=== PATIENT | female | born 1980 | race Caucasian/White ===

== ENCOUNTER 2019-06-17 10:36 | Outpatient (CLI) | payer MEDICAID ==
--- NOTE | 2019-06-18 15:37 | XRAY Report ---
Reason: LOW BACK PAIN CHRONIC, HIP PAIN LT Procedure Date: 06/17/2019 Accession Number: [id number] / [id number] Procedure: XR - Hip w/Pelvis 2-3V LT CPT Code: FULL RESULT: EXAM: LEFT HIP RADIOGRAPHY EXAM DATE: 06/17/2019 11:18 AM. CLINICAL HISTORY: LOW BACK PAIN CHRONIC, HIP PAIN LT. COMPARISON: None. TECHNIQUE: 2 views. FINDINGS: Bones: Normal. No fractures or bone lesion. Joints: Normal. No dislocation. The hip joint space is preserved. Soft Tissues: Normal. No soft tissue swelling. IMPRESSION: 1. No osseous abnormalities. RADIA
--- NOTE | 2019-06-18 16:00 | XRAY Report ---
Reason: LOW BACK PAIN CHRONIC, HIP PAIN LT Procedure Date: 06/17/2019 Accession Number: [id number] / [id number] Procedure: XR - Lumbar Spine Complete CPT Code: FULL RESULT: EXAM: LUMBOSACRAL SPINE RADIOGRAPHY EXAM DATE: 06/17/2019 11:16 AM. CLINICAL HISTORY: Low back pain chronic; hip pain left. COMPARISONS: None. TECHNIQUE: 4 views. FINDINGS: Alignment: Normal. No spondylolisthesis or scoliosis. Bones: Five ajo-iiu-yhrrusr lumbar vertebral bodies are present. No acute fracture or bony lesion. Minimal degenerative spurring. Disks: Mild disk space narrowing at L5-S1. Degenerative changes of the lower thoracic spine. Facets: Mild lower lumbar facet arthropathy greatest at L5-S1. Sacroiliac Joints: Unremarkable. Soft Tissues: Normal. The visualized bowel gas pattern is normal. IMPRESSION: 1. Mild L5-S1 intervertebral disk space narrowing. 2. Lumbar facet arthropathy. RADIA
== END 2019-06-17 10:37 | disposition home or self-care (01) ==
LOC: DI 10:36
PROVIDERS: ATTEND Family Medicine
DX: M25.552 Pain in left hip (principal); M51.37 Other intervertebral disc degeneration, lumbosacral region; M47.816 Spondylosis without myelopathy or radiculopathy, lumbar region; M47.817 Spondylosis without myelopathy or radiculopathy, lumbosacral region; M51.34 Other intervertebral disc degeneration, thoracic region
CPT/HCPCS: 72110

== ENCOUNTER 2019-08-19 18:10 | Emergency (ER) | payer BC, MEDICAID ==
--- NOTE | 2019-08-19 19:22 | ED Physician Documentation ---
PD HPI HEENT - Stated complaint Stated Complaint: L EAR PX - Chief complaint Chief Complaint: Heent - History obtained from History obtained from: Patient - History of Present Illness Timing - details: Constant (4 months of left ear pain and decreased hearing, no URI symptoms.) Review of Systems Constitutional: denies: Fever, Chills Ears: reports: Loss of hearing, Ear pain. denies: Drainage/discharge Nose: denies: Rhinorrhea / runny nose PD PAST MEDICAL HISTORY - Past Medical History Past Medical History: Yes Psych: Anxiety - Past Surgical History Past Surgical History: No - Present Medications Home Medications: Ambulatory Orders Medication Instructions Recorded Confirmed Ibuprofen [Motrin] 400 mg PO Q6H PRN #30 tablet 01/17/14 clonazePAM [Klonopin] 0.5 mg PO BID 01/17/14 01/17/14 - Allergies Allergies/Adverse Reactions: Allergies Allergy/AdvReac Type Severity Reaction Status Date / Time acetaminophen [From Vicodin] Allergy Mild itch Verified 08/19/19 18:18 hydrocodone bitartrate * Allergy Mild itch Verified 08/19/19 18:18 [From Vicodin] - Social History Does the pt smoke?: Yes Smoking Status: Current every day smoker Does the pt drink ETOH?: Yes Does the pt have substance abuse?: No - Immunizations Immunizations are current?: Yes - POLST Patient has POLST: No PD ED PE NORMAL - Vitals Vital signs reviewed: Yes - General General: Alert and oriented X 3, No acute distress - HEENT HEENT: Other (L cerumen impaction, R is nl) - Neuro Neuro: Alert and oriented X 3, Normal speech Results - Vitals Vitals: Vital Signs - 24 hr 08/19/19 18:18 Temperature 37.1 C Heart Rate 85 Respiratory 16 Rate Blood Pressure 118/62 O2 Saturation 96 Oxygen O2 Source Room air Procedures - General procedure General procedure: The left ear was cleared of cerumen using syringe irrigation after which she was symptom-free. Departure - Departure Disposition: 01 Home, Self Care Clinical Impression: Impacted cerumen of left ear Condition: Good
[2019-08-19 19:33] VITALS: BP 120/60
== END 2019-08-19 19:31 | disposition home or self-care (01) ==
LOC: ED 18:10
DX: H61.22 Impacted cerumen, left ear (principal); F17.200 Nicotine dependence, unspecified, uncomplicated
CPT/HCPCS: 69209; 99281; 99282

== ENCOUNTER 2020-01-18 07:13 | Emergency (ER) | payer MEDICAID ==
[2020-01-18] MEDS ORDERED: KETOROLAC 60 MG/2 ML VIAL IM STA (07:34)
--- NOTE | 2020-01-18 07:34 | ED Physician Documentation ---
PD HPI BACK PAIN - Stated complaint Stated Complaint: LOWER BACK PAIN - History obtained from History obtained from: Patient - History of Present Illness Timing - onset: Yesterday Timing - details: Abrupt onset Location: Mid, Lower Quality: Pain, Sharp Associated symptoms: No: Fever, Numbness, Incontinent of urine, Unable to urinate Improves with: Nothing Worsened by: Movement Contributing factors: Lifting Recently seen: Not recently seen - Additional information Additional information: This is a 39-year-old woman who is already in physical therapy for lower back when she lifted her TV stand yesterday with everything still on it and is now having a worsening of her lower back pain more on the right than the left. She took an Aleve tablet last night but is taken nothing this morning. She is complaining of pain "all over her legs" with sparking and shooting pains randomly in different spots in both lower extremities. She denies any urinary symptoms of dysuria or incontinence. Review of Systems Constitutional: denies: Fever : denies: Dysuria, Incontinent, Hematuria Musculoskeletal: reports: Back pain Neurologic: denies: Generalized weakness, Focal weakness PD PAST MEDICAL HISTORY - Past Medical History Psych: Anxiety - Past Surgical History Past Surgical History: No - Present Medications Home Medications: Ambulatory Orders Medication Instructions Recorded Confirmed Ibuprofen [Motrin] 400 mg PO Q6H PRN #30 tablet 01/17/14 Alprazolam [Xanax] 0.25 mg PO 01/18/20 Dextroamphetamine/Amphetamine 10 mg PO 01/18/20 [Adderall 10 mg Tablet] Lidocaine Patch 5% [Lidoderm Patch] 1 patch TOP DAILY PRN #10 patch 01/18/20 methocarbamoL [Robaxin] 500 mg PO Q6H #30 tablet 01/18/20 - Allergies Allergies/Adverse Reactions: Allergies Allergy/AdvReac Type Severity Reaction Status Date / Time acetaminophen [From Vicodin] Allergy Mild itch Verified 01/18/20 07:26 hydrocodone bitartrate * AdvReac Mild itch Verified 01/18/20 07:26 [From Vicodin] - Social History Does the pt smoke?: Yes Smoking Status: Current every day smoker Does the pt drink ETOH?: Yes Does the pt have substance abuse?: No - Immunizations Immunizations are current?: Yes - POLST Patient has POLST: No PD ED PE NORMAL - Vitals Vital signs reviewed: Yes - General General: Alert and oriented X 3, No acute distress, Well developed/nourished, Other (When asked to sit on the bed she actually crawled onto the bed and then turned around to sit because of the pain.) - Back Back: No CVA TTP, Other (No bruising, swelling or rash. 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 Order to put a lidocaine patch on her. I have encouraged her to use her anti-inflammatory medication consistently. I have also prescribed Robaxin since she does not get much relief with Flexeril in the past. Continue with physical therapy. Departure - Departure Disposition: Home, Self Care Clinical Impression: Back pain Qualifiers: Back pain location: low back pain Chronicity: unspecified Back pain laterality: midline Sciatica presence: unspecified whether sciatica present Qualified Code(s): M54.5 - Low back pain Condition: Good Instructions: ED Sprain Strain Lumbar Follow-Up: Oswaldo Diaz DO [Primary Care Provider] - Prescriptions: Lidocaine Patch 5% [Lidoderm Patch] 1 patch TOP DAILY PRN #10 patch PRN Reason: pain methocarbamoL [Robaxin] 500 mg PO Q6H #30 tablet Comments: Continue to take your Aleve twice a day. Use the lidocaine patches on the lower back. Avoid icing if you are using the lidocaine because you can end up with frostbite or burn to the skin. May use the Robaxin muscle relaxer up to 4 times a day if needed. Continue with your physical therapy stretches at home. Follow-up with your primary care provider if you have continued pain.
[2020-01-18] MEDS ORDERED: LIDOCAINE PATCH 5% TOP STA (07:40)
[2020-01-18 08:06] VITALS: BP 113/54
== END 2020-01-18 08:16 | disposition home or self-care (01) ==
LOC: ED 07:13
DX: M54.5 Low back pain (principal); F17.200 Nicotine dependence, unspecified, uncomplicated
CPT/HCPCS: 96372; 99283; 99284; A9270

== ENCOUNTER 2020-07-29 10:42 | Outpatient (CLI) | payer OTHER, MEDICAID ==
--- NOTE | 2020-07-29 14:32 | XRAY Report ---
PROCEDURE: Bone Length Study INDICATIONS: LEG LENGTH DISCREPANCY TECHNIQUE: A single frontal standing view of both lower extremities acquired, with measuring ruler s ituated between the legs. COMPARISON: None FINDINGS: Right: Total leg length is 82 cm. Left: Total leg length is 82 cm. IMPRESSION: Leg lengths as above. Reviewed by: Lisseth Quintanilla MD on 07/29/2020 2:31 PM PDT Approved by: Lisseth Quintanilla MD on 07/29/2020 2:31 PM PDT Station ID: [id number]
== END 2020-07-29 10:43 | disposition home or self-care (01) ==
LOC: DI 10:42
PROVIDERS: ATTEND Family Medicine
DX: M21.70 Unequal limb length (acquired), unspecified site (principal)
CPT/HCPCS: 77073